=== PATIENT | male | born 1970 | race African-American/Black ===

== ENCOUNTER 2018-07-25 15:31 | Emergency (ER) | payer MEDICARE ==
[~2018-07-25 15:31] MED LIST: ADDERALL 10 MG10 MG PO; ADDERALL XR 3030 MG PO; AMBIEN10 MG PO; DEPAKOTE ER500 MG PO; DEPAKOTE125 MG PO; GEODON20 MG PO; GEODON40 MG PO; LAMICTAL25 MG PO; LEVAQUIN500 MG PO; TOFRANIL50 MG PO; WELLBUTRIN XL150 M1 PO; XANAX2 MG PO
[2018-07-25 15:37] VITALS: BMI 30.1
[2018-07-25 16:06] LABS: BASOPHILS 0.2 % (0-2); EOSINOPHILS 0.4 % (0-7); HEMATOCRIT 41.1 % (42.0-54.0); HEMOGLOBIN 14.9 g/dL (13.5-17.5); IMMATURE GRANULOCYTES 0.2 % (0-5); LYMPHOCYTES 21.1 % (15-50); MCH 32.2 pg (26.0-34.0); MCHC 36.3 g/dL (31.0-37.0); MCV 88.8 fL (80.0-100.0); MEAN PLATELET VOLUME 8.7 fL (7.4-10.4); MONOCYTES 8.6 % (2-11); NEUTROPHILS 69.5 % (40-80); PLATELET COUNT 211 10x3/uL (130-400); RBC 4.63 10x6/uL (4.20-6.10); RDW 12.3 % (11.5-14.5); WBC 5.6 10x3/uL (4.8-10.8)
[2018-07-25 16:24] LABS: ALBUMIN 4.2 g/dL (3.4-5.0); ANION GAP 15.6 mmol/L (8-16); BILIRUBIN - TOTAL 0.75 mg/dL (0.2-1.3); CALCIUM 9.1 mg/dL (8.5-10.1); CREATININE - SERUM 1.5 mg/dL (0.6-1.3); POTASSIUM - SERUM 3.6 mmol/L (3.5-5.1); PROTEIN - SERUM 8.1 g/dL (6.4-8.2)
[2018-07-25 16:51] LABS: APPEARANCE CLEAR (CLEAR); BILIRUBIN NEGATIVE (NEGATIVE); COLOR STRAW (YELLOW); GLUCOSE NEGATIVE (NEGATIVE); KETONE NEGATIVE (NEGATIVE); NITRITE NEGATIVE (NEGATIVE); PROTEIN NEGATIVE (NEGATIVE); SPECIFIC GRAVITY 1.005 (1.005-1.020); UROBILINOGEN NORMAL (NORMAL)
[2018-07-25 16:58] LABS: UDS - AMPHET POSITIVE QUAL (NEGATIVE); UDS - BARB NEGATIVE QUAL (NEGATIVE); UDS - BENZO NEGATIVE QUAL (NEGATIVE); UDS - COCAINE NEGATIVE QUAL (NEGATIVE); UDS - OPIATE NEGATIVE QUAL (NEGATIVE); UDS - PCP NEGATIVE QUAL (NEGATIVE); UDS - THC NEGATIVE QUAL (NEGATIVE)
[2018-07-25 17:21] VITALS: BP 117/68
== END 2018-07-25 17:25 | disposition home or self-care (01) ==
LOC: D.ER 15:31
PROVIDERS: Emergency Medicine
DX: F41.9 Anxiety disorder, unspecified (principal); F19.10 Other psychoactive substance abuse, uncomplicated; N28.9 Disorder of kidney and ureter, unspecified

== ENCOUNTER 2018-07-26 05:53 | Emergency (ER) | payer MEDICARE ==
[~2018-07-26] VITALS: Ht 177.8 cm; Wt 97.7 kg
[2018-07-26 05:54] VITALS: Ht 177.8 cm; Wt 97.7 kg
[2018-07-26 06:19] LABS: BASOPHILS 0.2 % (0-2); EOSINOPHILS 0.2 % (0-7); HEMATOCRIT 40.5 % (42.0-54.0); HEMOGLOBIN 14.5 g/dL (13.5-17.5); IMMATURE GRANULOCYTES 0.4 % (0-5); LYMPHOCYTES 14.5 % (15-50); MCH 32.2 pg (26.0-34.0); MCHC 35.8 g/dL (31.0-37.0); MCV 89.8 fL (80.0-100.0); MEAN PLATELET VOLUME 9.1 fL (7.4-10.4); MONOCYTES 6.6 % (2-11); NEUTROPHILS 78.1 % (40-80); PLATELET COUNT 170 10x3/uL (130-400); RBC 4.51 10x6/uL (4.20-6.10); RDW 12.2 % (11.5-14.5); WBC 5.3 10x3/uL (4.8-10.8)
[2018-07-26 06:32] LABS: ANION GAP 17.5 mmol/L (8-16); BILIRUBIN - TOTAL 0.76 mg/dL (0.2-1.3); CALCIUM 8.8 mg/dL (8.5-10.1); CARBON DIOXIDE 21.3 mmol/L (21.0-32.0); CREATININE - SERUM 1.4 mg/dL (0.6-1.3); POTASSIUM - SERUM 3.8 mmol/L (3.5-5.1); PROTEIN - SERUM 7.8 g/dL (6.4-8.2)
[2018-07-26 10:40] LABS: AMYLASE - SERUM 38 U/L (25-115); LIPASE 120 U/L (73-393); TROPONIN-I < 0.017 ng/mL (0.000-0.060)
[2018-07-26 11:11] VITALS: BP 122/79
== END 2018-07-26 10:55 | disposition home or self-care (01) ==
LOC: D.ER 05:53
PROVIDERS: Family Medicine
DX: R41.82 Altered mental status, unspecified (principal)

== ENCOUNTER 2019-02-02 02:23 | Emergency (ER) | payer MEDICARE ==
[~2019-02-02] VITALS: Ht 177.8 cm; Wt 98.6 kg
[2019-02-02 02:32] VITALS: Ht 177.8 cm; Wt 98.6 kg
[2019-02-02] MEDS ORDERED: PAXIL10 MG/5 ML PO (02:35)
[2019-02-02 11:00] VITALS: BP 128/74
== END 2019-02-02 11:01 | disposition home or self-care (01) ==
LOC: D.ER 02:23
DX: G47.00 Insomnia, unspecified (principal); Z59.0 Homelessness